=== PATIENT | male | born 1950 | race Caucasian/White ===

== ENCOUNTER 2019-09-04 21:40 | Emergency (ER) | payer MEDICARE, SELFPAY ==
[2019-09-04 21:52] VITALS: BP 170/79; PULSE 56; RESP 24; TEMP 36.2; O2SAT 99
--- NOTE | 2019-09-04 22:08 | ED_ITS ---
HPI - Male Genitourinary General Chief complaint: Urogenital-Male Stated complaint: pain with urination, groin pain Time Seen by Provider: 09/04/19 21:43 Source: patient Mode of arrival: Ambulatory Limitations: no limitations History of Present Illness HPI Narrative: 68-year-old male here for evaluation of right lower quadrant/right groin/right testicular pain. He states it has been going on for the past couple days. Today he started to have some pain with urination. Also having some lower back pain. Unsure if this is new or old. Pain is worse with palpation. No changes in bowel habits. No vomiting. Has not tried anything for the symptoms prior to arrival Related Data Allergies Allergy/AdvReac Type Severity Reaction Status Date / Time No Known Drug Allergies Allergy Verified 09/04/19 21:46 Review of Systems Constitutional Constitutional: Denies fever(s) Cardiovascular Cardiovascular: Denies chest pain and Denies dyspnea Respiratory Respiratory: Denies cough and Denies dyspnea Gastrointestinal Gastrointestinal: Reports abdominal pain, Denies change in stool character, Denies diarrhea, Denies nausea and Denies vomiting Genitourinary Genitourinary: Reports genital pain, Reports dysuria and Reports testicular pain Musculoskeletal Musculoskeletal: Reports back pain Integumentary/Breasts Skin/Breast: Denies lesions and Denies rash Neurologic Neurologic: Denies behavioral changes Psychiatric Psychiatric: Denies behavioral changes Hematologic/Lymphatic Hematologic/Lymphatic: Denies easy bleeding and Denies easy bruising Patient History Medical History Radiculopathy of cervical region (Inactive) Social History Smoking Status: Current every day smoker Smoking Status: Current every day smoker Exam Initial Vital Signs Initial Vital Signs: Vital Signs Temperature 97.1 F L 09/04/19 21:52 Pulse Rate 56 L 09/04/19 21:52 Respiratory Rate 24 09/04/19 21:52 Blood Pressure 170/79 H 09/04/19 21:52 Pulse Oximetry 99 09/04/19 21:52 Const General: cooperative Orientation: alert and awake HENMT Head: normal to inspection and normocephalic Resp Effort & Inspection: normal respiratory effort Cardio Rate: regular rate GI Inspection: non-distended Palpation: soft, No firm and tender (Right lower quadrant) External: circumcised Penis: normal penis Scrotum: scrotum normal Testes: normal, epididymal tenderness on the right, no testicular mass, no testicular swelling and testicular tenderness on the right Back/Spine/Pelvis Back: No CVA tenderness Skin Lesions: no lesions Rashes: no rashes Neuro General: alert and awake Cognition: normal cognition Speech: speech normal Extrem General: normal to inspection and capillary refill normal Psych Appearance: grossly normal and well kempt Course Orders Ordered: ED Orders 09/04/19 22:15 Complete Blood Count AUTO DIFF Stat Comprehensive Metabolic Panel Stat Lipase Stat 09/04/19 22:35 CT kidney ureter bladder (KUB) Stat US scrotum Stat 09/05/19 00:10 Urine Microscopic Stat Discontinued Medications Ketorolac Tromethamine (Toradol) 30 mg IV NOW ONE Stop: 09/04/19 22:35 Last Admin: 09/04/19 22:41 Dose: 30 mg Documented by: [place] Vital Signs Vital signs: Vital Signs - 8 hr 09/04/19 21:52 09/04/19 23:41 Temperature 97.1 F L Pulse Rate 56 L 60 Respiratory Rate 24 18 Blood Pressure [Left Arm] 170/79 H 142/77 H Pulse Oximetry 99 98 MDM - Male Genitourinary Lab Data Attestation: I reviewed the patient's lab results. Result diagrams: 09/04/19 22:15 09/04/19 22:15 Labs: Lab Results 09/04/19 09/04/19 09/05/19 Range/Units 22:15 22:15 00:10 WBC 10.6 (4.5-11.0) X10^3/uL RBC 5.23 (4.5-5.9) X10^6/uL Hgb 15.3 (13.5-17.5) g/dL Hct 44.2 (41-53) % MCV 84.5 (80-100) fL MCH 29.3 (26-34) PG MCHC 34.7 (30-36) % RDW 14.1 (11.6-14.8) % Plt Count 243 (150-400) X10^3/uL Neut % (Auto) 76.9 H (50-75) % Lymph % (Auto) 16.2 L (25-40) % [place] % (Auto) 5.2 (3-14) % Eos % (Auto) 0.9 L (2-4) % Baso % (Auto) 0.8 (0-2) % Neut # (Auto) 8200 H (2352-1159) /uL Lymph # (Auto) 1700 (1437-6678) /uL [place] # (Auto) 600 (0-900) /uL Eos # (Auto) 100 (0-450) /uL Baso # (Auto) 100 (0-100) /uL Sodium 138 (137-145) mmol/L Potassium 3.3 L (3.4-5.1) mmol/L Chloride 101 (98-107) mmol/L Carbon Dioxide 23 (22-32) mmol/L BUN 15 (9-20) mg/dL Creatinine 0.80 (0.66-1.25) mg/dL Estimated GFR > 60.0 (>60) mL/min BUN/Creatinine Ratio 18.8 (6-22) Glucose 114 H (80-110) mg/dL Calcium 9.3 (8.4-10.2) mg/dL Total Bilirubin 0.6 (0.2-1.3) mg/dL AST 33 (17-59) IU/L ALT 27 (<50) IU/L Alkaline Phosphatase 78 (38-126) U/L Total Protein 7.7 (6.3-8.2) g/dL Albumin 4.6 (3.5-5.0) g/dL Globulin 3.1 (1.7-4.1) g/dL Albumin/Globulin Ratio 1.5 (1.0-2.8) Lipase 56 (23-300) U/L Urine RBC None seen (0-5/HPF) Urine WBC None seen (0-5/HPF) Ur Squamous Epith Cells 0-1 /hpf (0-5/HPF) Urine Bacteria None seen (None) Ur Culture Indicated? Cult not indicated Urine Dip Bedside Urine Glucose Negative Bedside Urine Bilirubin - Negative Bedside Urine Ketone - Negative Urine Specific [place] 1.015 Bedside Urine Occult Blood - Negative Bedside Urine pH 7.5 Bedside Urine Protein +/- 15 Bedside Urine Urobilinogen - Negative Bedside Urine Nitrite - Negative Bedside Urine Leukocytes - Negative Esterase Imaging Data CT scan - abdomen/pelvis: Radiologist's Impression: No renal calculi or hydronephrosis Unremarkable appendix MDM Narrative Medical decision making narrative: Labs unremarkable, urinalysis shows no signs of infection. CT scan of the abdomen shows no signs of hernia, appendicitis, ureteral stone. Patient's pain is more along the epididymis and in the right groin area. Not on the right testicle. He has had pain for the past several days. Low suspicion for testicular torsion. No indication for antibiotics. Patient is not concern for any STI's we did discuss symptomatic treatment for epididymitis. Discussed use of anti-inflammatories. Discussed return precautions and follow-up instructions. He expressed understanding and agreement plan. Discharge Plan Departure Patient Disposition: Home Clinical Impression: Right groin pain Instructions: DI for Epididymitis Activity Restrictions/Additional Instructions: Recommend that you continue with the anti-inflammatories such as Motrin or Naprosyn. Also recommend he wear supportive clothing. You can also ice the area. Contact her primary provider for follow-up. Like we discussed if you are looking for primary provider here in the local area you can contact the health human resources services specialist at [phone]. Return to the emergency department for any new or worsening symptoms.
--- NOTE | 2019-09-04 22:35 | DI.CT.S_ITS ---
PROCEDURE: CT KIDNEY URETER BLADDER (KUB) INDICATIONS: Right lower quadrant abdominal pain eval for stone TECHNIQUE: Noncontrast 5 mm thick sections acquired from the diaphragms to the symphysis. 5 mm thick coronal and sagittal reformats were then performed. For radiation dose reduction, the following was used: automated exposure control, adjustment of mA and/or kV according to patient size. COMPARISON: None. FINDINGS: Image quality: Excellent. Lung bases: Lung bases are clear. Heart size is normal. Urinary system: Both kidneys are normal in size. No kidney stones. No hydronephrosis or perinephric fat stranding. Both ureters appear non-dilated throughout their expected courses. Bladder wall thickness is normal; no calcified bladder stones. Note is made of several pelvic phleboliths, separate from the expected course of the distal ureters bilaterally. Other solid organs: Liver is normal in size but there appears to be moderate fatty infiltration throughout the liver. Gallbladder appears normal. Pancreas is normal in contours. Spleen is normal in size. No adrenal nodules. Peritoneum and bowel: Unenhanced bowel loops demonstrate normal wall thickness and caliber. No free fluid or air. Nodes and vessels: No retroperitoneal or mesenteric adenopathy by size criteria. Aorta and inferior vena cava are normal in caliber. Abdominal wall: No ventral hernias. Pelvis: No free pelvic fluid. No inguinal hernias or adenopathy. Normal appendix foun right lower quadrant. Note is made of multiple small surgical clips at the upper margin of the right hemiscrotum, possibly indicating prior orchiectomy. Note is made of a 1.5 cm partially calcified presumed lymph nodes above the right seminal vesicle. No inflammation in this area is present. Bones: No suspicious bony lesions. No vertebral body compression fractures. IMPRESSION: A source of right lower quadrant pain is not seen. No hydronephrosis or nephrolithiasis is present. A normal appendix is found, no adjacent diverticulitis is suspected. Multiple small surgical clips seen at the upper margin of the left hemiscrotum, indicating some form of operative intervention in that area. Incidental note is made of a partially calcified lymph node in the expected position of the soft tissues just above the right seminal vesicle. Dictated by: Vaughn Ch M.D. on 09/05/2019 at 8:10 Approved by: Vaughn Ch M.D. on 09/05/2019 at 8:14
[2019-09-04] MEDS: KETOROLAC 60 MG/2 ML VIAL 30 MG IV (22:41)
[2019-09-04 22:45] LABS: Add Manual Diff / Slide Review NO; Basophils Absolute Auto 100 /uL (0-100); Basophils Percent Auto 0.8 % (0-2); Eosinophils Absolute Auto 100 /uL (0-450); Eosinophils Percent Auto 0.9 % (2-4); Hematocrit 44.2 % (41-53); Hemoglobin 15.3 g/dL (13.5-17.5); Lymphocytes Absolute Auto 1700 /uL (1100-4500); Lymphocytes Percent Auto 16.2 % (25-40); Mean Corpuscular HGB Conc 34.7 % (30-36); Mean Corpuscular Hemoglobin 29.3 PG (26-34); Mean Corpuscular Volume 84.5 fL (80-100); Monocytes Absolute Auto 600 /uL (0-900); Monocytes Percent Auto 5.2 % (3-14); Neutrophils Absolute Auto 8200 /uL (1500-7000); Neutrophils Percent Auto 76.9 % (50-75); Platelet Count 243 X10^3/uL (150-400); Red Blood Cell Count 5.23 X10^6/uL (4.5-5.9); Red Cell Distribution Width 14.1 % (11.6-14.8); White Blood Cell Count 10.6 X10^3/uL (4.5-11.0)
[2019-09-04 22:46] LABS: Alanine Aminotransferase 27 IU/L (<50); Albumin 4.6 g/dL (3.5-5.0); Albumin Globulin Ratio 1.5 (1.0-2.8); Alkaline Phosphatase 78 U/L (38-126); Aspartate Aminotransferase 33 IU/L (17-59); BUN Creatinine Ratio 18.8 (6-22); Bilirubin Total 0.6 mg/dL (0.2-1.3); Blood Urea Nitrogen 15 mg/dL (9-20); Calcium 9.3 mg/dL (8.4-10.2); Carbon Dioxide 23 mmol/L (22-32); Chloride 101 mmol/L (98-107); Estimated Glomerular Filt Rate > 60.0 mL/min (>60); Globulin 3.1 g/dL (1.7-4.1); Glucose 114 mg/dL (80-110); HEMOLYSIS 16 (0-50); Lipase 56 U/L (23-300); Potassium 3.3 mmol/L (3.4-5.1); Sodium 138 mmol/L (137-145); Total Protein 7.7 g/dL (6.3-8.2)
[2019-09-04 23:41] VITALS: BP 142/77; PULSE 60; RESP 18; O2SAT 98
--- NOTE | 2019-09-05 00:14 | PC.NURSE ---
He said the toradol helped his pain a lot,however,he just urinated and said urinating made the pain worse, notified of this.
[2019-09-05 00:18] LABS: Bacteria Urine None Seen; RBC Urine None Seen (0-5/HPF); WBC Urine None Seen (0-5/HPF)
[2019-09-05 00:33] LABS: Culture Indicated Urine Cult Not Indicated; Squamous Epithelial Cell Urine 0-1 /HPF (0-5/HPF)
[2019-09-05 01:00] VITALS: BP 139/71; PULSE 56; RESP 18; O2SAT 98
== END 2019-09-05 01:01 | disposition home or self-care (01) ==
PROVIDERS: Emergency Provider Emergency Medicine
DX: R10.31 Right lower quadrant pain (principal); R30.0 Dysuria
CPT/HCPCS: 36415; 51798; 74176; 80053; 81003; 81015; 83690; 85025; 96374; 99284; J1885

== ENCOUNTER 2019-09-18 08:22 | Emergency (ER) | payer MEDICARE, SELFPAY ==
[2019-09-18 08:22] VITALS: BP 200/97; PULSE 57; RESP 18; TEMP 37.1; O2SAT 100; BMI 34.3
--- NOTE | 2019-09-18 08:34 | DI.RAD.S_ITS ---
PROCEDURE: XR CHEST 1V INDICATIONS: chest pain TECHNIQUE: One view of the chest was acquired. COMPARISON: None. FINDINGS: Surgical changes and devices: None. Lungs and pleura: Scattered subsegmental atelectasis and/or scarring. No focal consolidation. No pleural effusions or pneumothorax. Mediastinum: Mediastinal contours appear normal. Heart size is normal. Bones and chest wall: No suspicious bony lesions. Overlying soft tissues appear unremarkable. Chronic right rib fractures. IMPRESSION: Scattered subsegmental atelectasis and/or scarring. No acute consolidation. Dictated by: Edward Dubose M.D. on 09/18/2019 at 9:13 Approved by: Edward Dubose M.D. on 09/18/2019 at 9:15
[2019-09-18 08:45] LABS: Add Manual Diff / Slide Review NO; Basophils Absolute Auto 100 /uL (0-100); Basophils Percent Auto 0.7 % (0-2); Eosinophils Absolute Auto 300 /uL (0-450); Hematocrit 41.9 % (41-53); Hemoglobin 14.6 g/dL (13.5-17.5); Lymphocytes Absolute Auto 1600 /uL (1100-4500); Lymphocytes Percent Auto 22.7 % (25-40); Mean Corpuscular HGB Conc 34.8 % (30-36); Mean Corpuscular Hemoglobin 29.1 PG (26-34); Mean Corpuscular Volume 83.6 fL (80-100); Monocytes Absolute Auto 500 /uL (0-900); Monocytes Percent Auto 7.2 % (3-14); Neutrophils Absolute Auto 4700 /uL (1500-7000); Neutrophils Percent Auto 65.4 % (50-75); Platelet Count 205 X10^3/uL (150-400); Red Blood Cell Count 5.01 X10^6/uL (4.5-5.9); Red Cell Distribution Width 14.7 % (11.6-14.8); White Blood Cell Count 7.1 X10^3/uL (4.5-11.0)
--- NOTE | 2019-09-18 08:45 | ED_ITS ---
HPI - Chest Pain General Chief Complaint: Chest Pain Stated Complaint: Sent over from Doctors office. shortness breath Time Seen by Provider: 09/18/19 08:34 Source: patient Mode of arrival: Wheelchair History of Present Illness HPI narrative: Patient is a 69-year-old male with history of hypertension presenting with chest pain. He says he woke up this morning with chest heaviness radiating to his jaw and right arm. He noticed it getting worse with exertion. He has never had anything like this in the past. He took an aspirin prior to arrival. MD complaint: chest pain Onset (ago): hour(s) Duration: constant Onset: during rest Pain location: substernal Severity: severe Quality: tightness and heaviness Pain radiation: RUE Relieving factors: nothing Exacerbating factors: exertion Treatments prior to arrival chest pain: aspirin Related Data Allergies Allergy/AdvReac Type Severity Reaction Status Date / Time No Known Drug Allergies Allergy Verified 09/04/19 21:46 Review of Systems Review of Systems Narrative: GENERAL: Denies chills, fatigue, malaise, fever, sweats, travel HEENT: Denies sinus pain, ear pain, sore throat, difficulty swallowing, neck pain RESPIRATORY: Denies dyspnea, cough, wheezing, hemoptysis, sputum. CARDIOVASCULAR: See HPI GASTROINTESTINAL: Denies nausea, vomiting, abdominal pain, diarrhea, constipation, melena. : Denies dysuria, frequency, incontinence, hematuria, urinary retention, flank pain. MUSCULOSKELETAL: Denies weakness, joint pain, or bony pain SKIN: No rash, no erythema, no pruritus NEUROLOGIC: Denies weakness, dizziness, headache, numbness, change in speech, co nfusion PSYCHIATRIC: No concerning psychosocial issues. 12 point review of systems is negative except for those stated above and HPI Patient History Medical History Hypertension (Acute) Radiculopathy of cervical region (Inactive) Social History Smoking Status: Current every day smoker Smoking Status: Current every day smoker tobacco type: cigarettes Substance Use Type: does not use Exam Initial Vital Signs Initial Vital Signs: Vital Signs Temperature 98.7 F 09/18/19 08:22 Pulse Rate 57 L 09/18/19 08:22 Respiratory Rate 18 09/18/19 08:22 Blood Pressure 200/97 H 09/18/19 08:22 Pulse Oximetry 100 09/18/19 08:22 GENERAL: Well-appearing, well-nourished and in no acute distress. HEENT: Head atraumatic,EOMI, pupils reactive, face symmetric, moist mucous membranes CARDIOVASCULAR: Regular rate and rhythm without murmurs, rubs or gallops. RESPIRATORY: Breath sounds equal bilaterally, no wheezes rales or rhonchi. ABDOMEN: Soft, nontender. Normoactive bowel sounds all 4 quadrants. No guarding or rebound.ess EXTREMITIES: Normal range of motion, no clubbing or edema. Neurovascularly intact NEUROLOGICAL: Alert and oriented x4.Normal gait and speech. Cranial nerves II through XII grossly intact. SKIN: Warm, dry, no laceration, no petechiae, no rashes or lesions. Course Orders Ordered: ED Orders 09/18/19 08:32 B Type Natriuretic Peptide Stat Complete Blood Count AUTO DIFF Stat Comprehensive Metabolic Panel Stat Lipase Stat Partial Thromboplastin Time Stat Prothrombin Time INR Stat Troponin & CK Cardiac Panel Stat 09/18/19 08:34 XR chest 1V Stat EKG-12 Lead Stat Sodium Chloride (Normal Saline 0.9%) 1,000 mls @ 150 mls/hr IV CONT YAJAIRA Last Infusion: 09/18/19 09:27 Dose: 150 mls/hr Documented by: Admin: 09/18/19 08:47 Dose: 150 mls/hr Documented by: CRISTÓBAL Heparin Sodium/Dextrose (Heparin Drip) 25,000 unit in 500 mls @ 20 mls/hr IV CONT YAJAIRA; Protocol Last Titration: 09/18/19 09:26 Dose: 1,000 units/hr, 20 mls/hr Documented by: Admin: 09/18/19 09:05 Dose: 1,000 units/hr, 20 mls/hr Documented by: CRISTÓBAL Discontinued Medications Heparin Sodium (Porcine) (Heparin) 5,000 unit IV NOW ONE Stop: 09/18/19 09:01 Last Admin: 09/18/19 09:05 Dose: 5,000 unit Documented by: CRISTÓBAL Nitroglycerin (Nitrostat) 0.4 mg SL [id number] PRN PRN Reason: Chest Pain Last Admin: 09/18/19 08:58 Dose: 0.4 mg Documented by: Admin: 09/18/19 08:52 Dose: 0.4 mg Documented by: Admin: 09/18/19 08:47 Dose: 0.4 mg Documented by: CRISTÓBAL Vital Signs Vital signs: Vital Signs - 8 hr 09/18/19 08:22 09/18/19 08:47 09/18/19 08:52 Temperature 98.7 F Pulse Rate 57 L 57 L 67 Respiratory Rate 18 Blood Pressure 200/97 H 200/57 H 136/92 H Blood Pressure [Left Arm] Pulse Oximetry 100 09/18/19 08:58 09/18/19 09:00 09/18/19 09:15 Temperature Pulse Rate 65 63 61 Respiratory Rate 22 14 Blood Pressure 125/81 156/84 H Blood Pressure [Left Arm] 109/78 154/89 H Pulse Oximetry 95 98 MDM - Chest Pain Lab Data Attestation: I reviewed the patient's lab results. Result diagrams: 09/18/19 08:32 09/18/19 08:32 Labs: Lab Results 09/18/19 09/18/19 09/18/19 Range/Units 08:32 08:32 08:32 WBC 7.1 (4.5-11.0) X10^3/uL RBC 5.01 (4.5-5.9) X10^6/uL Hgb 14.6 (13.5-17.5) g/dL Hct 41.9 (41-53) % MCV 83.6 (80-100) fL MCH 29.1 (26-34) PG MCHC 34.8 (30-36) % RDW 14.7 (11.6-14.8) % Plt Count 205 (150-400) X10^3/uL Neut % (Auto) 65.4 (50-75) % Lymph % (Auto) 22.7 L (25-40) % [place] % (Auto) 7.2 (3-14) % Eos % (Auto) 4.0 (2-4) % Baso % (Auto) 0.7 (0-2) % Neut # (Auto) 4700 (0617-0223) /uL Lymph # (Auto) 1600 (4488-6189) /uL [place] # (Auto) 500 (0-900) /uL Eos # (Auto) 300 (0-450) /uL Baso # (Auto) 100 (0-100) /uL PT 10.5 (10.1-12.7) SECONDS INR 0.9 (0.9-1.3) APTT 33 (26.4-36.2) SECONDS Sodium 141 (137-145) mmol/L Potassium 3.2 L (3.4-5.1) mmol/L Chloride 105 (98-107) mmol/L Carbon Dioxide 28 (22-32) mmol/L BUN 17 (9-20) mg/dL Creatinine 0.80 (0.66-1.25) mg/dL Estimated GFR > 60.0 (>60) mL/min BUN/Creatinine Ratio 21.3 (6-22) Glucose 113 H (80-110) mg/dL Calcium 9.6 (8.4-10.2) mg/dL Total Bilirubin 0.5 (0.2-1.3) mg/dL AST 32 (17-59) IU/L ALT 32 (<50) IU/L Alkaline Phosphatase 74 (38-126) U/L Total Creatine Kinase 118 (55-170) U/L CK-MB (CK-2) 0.95 (<2.37) ng/mL CK-MB (CK-2) Rel Index 0.8 L (1.5-5.0) % Troponin I 0.026 (0.01-0.034) ng/mL B-Natriuretic Peptide < 100 (<100) Total Protein 7.5 (6.3-8.2) g/dL Albumin 4.3 (3.5-5.0) g/dL Globulin 3.2 (1.7-4.1) g/dL Albumin/Globulin Ratio 1.3 (1.0-2.8) Lipase 185 (23-300) U/L Imaging Data Chest x-ray: Attestation: I personally reviewed and interpreted this imaging study as follows: My Impression: No acute cardiopulmonary process ECG Data Attestation: I personally reviewed and interpreted this ECG as follows: Prior ECG tracings: available for review Interpretation: EKG 1. Sore normal sinus rhythm rate 55 p.r. interval 208 peak T-waves noted in V2 and V3 and V4 EKG 2. Normal sinus rhythm ST elevation in V2 no ST depressions Core Measures AMI core measures followed: Yes MDM Narrative Medical decision making narrative: Patient took aspirin prior to arrival he is given 3 nitroglycerines in the emergency department this has relieved his pain significantly. I called and spoke with Dr. Willson ER physician at [facility] who is happy to accept patient for stat transport. Critical Care Time Critical Care Time Critical Care Time: Yes Total Critical Care Time: 30 Attestation: The high probability of a clinically significant, sudden or life threatening deterioration of the [cardiovascular] system(s) required my full and direct attention, intervention and personal management. The aggregate critical care time was 30 minutes. This time is in addition to time spent performing reported procedures but includes the following: [x] Data Review and interpretation [x] Patient assessment and monitoring of vital signs [x] Documentation [x] Medication orders and management Discharge Plan Departure Patient Disposition: [facility] Clinical Impression: ST elevation (STEMI) myocardial infarction Qualifiers: Involved coronary artery: LAD coronary artery Qualified Code(s): I21.02 - ST elevation (STEMI) myocardial infarction involving left anterior descending coronary artery
[2019-09-18 08:47] VITALS: BP 200/57; PULSE 57
[2019-09-18] MEDS: NITROGLYCERIN 0.4 MG SL TAB SL ×3 (08:47→08:58)
[2019-09-18] MEDS: SODIUM CHLORIDE 0.9% 1,000 ML 150 ML IV (08:47)
[2019-09-18 08:51] LABS: INR 0.9 (0.9-1.3); Prothrombin Time 10.5 SECONDS (10.1-12.7)
[2019-09-18 08:52] VITALS: BP 136/92; PULSE 67
[2019-09-18 08:54] LABS: PTT Partial Thromboplastin Tim 33 SECONDS (26.4-36.2)
[2019-09-18 08:55] LABS: Alanine Aminotransferase 32 IU/L (<50); Albumin 4.3 g/dL (3.5-5.0); Albumin Globulin Ratio 1.3 (1.0-2.8); Alkaline Phosphatase 74 U/L (38-126); Aspartate Aminotransferase 32 IU/L (17-59); BUN Creatinine Ratio 21.3 (6-22); Bilirubin Total 0.5 mg/dL (0.2-1.3); Blood Urea Nitrogen 17 mg/dL (9-20); Calcium 9.6 mg/dL (8.4-10.2); Carbon Dioxide 28 mmol/L (22-32); Chloride 105 mmol/L (98-107); Creatine Kinase 118 U/L (55-170); Estimated Glomerular Filt Rate > 60.0 mL/min (>60); Globulin 3.2 g/dL (1.7-4.1); Glucose 113 mg/dL (80-110); HEMOLYSIS < 15 (0-50); Lipase 185 U/L (23-300); Potassium 3.2 mmol/L (3.4-5.1); Sodium 141 mmol/L (137-145); Total Protein 7.5 g/dL (6.3-8.2)
[2019-09-18 08:58] VITALS: BP 125/81; PULSE 65
[2019-09-18 09:00] VITALS: BP 109/78; PULSE 63; RESP 22; O2SAT 95
[2019-09-18 09:04] LABS: B Type Natriuretic Peptide < 100 (<100)
[2019-09-18] MEDS: HEPARIN DRIP 25,000 UNIT/500 ML IV.SOLN 20 UNIT IV (09:05)
[2019-09-18] MEDS: HEPARIN 5,000 UNIT/ML VIAL 5000 UNIT IV (09:05)
[2019-09-18 09:07] LABS: Troponin I 0.026 ng/mL (0.01-0.034)
[2019-09-18 09:15] VITALS: BP 154/89; BP 156/84; PULSE 57; PULSE 61; RESP 14; O2SAT 98
[2019-09-18] MEDS: NITROGLYCERIN OINT 1 INCH/GM OINT...G. TOP (09:15)
[2019-09-18 09:18] LABS: CKMB % Relative Index 0.8 % (1.5-5.0); Creatine Kinase MB 0.95 ng/mL (<2.37)
--- NOTE | 2019-09-18 09:28 | PC.NURSE ---
After third nitro patient complaint of being very sleepy. Placed oxygen on patient, laid flat. Provider called to bedside.
--- NOTE | 2019-09-18 09:32 | PC.NURSE ---
0900 Two RN sign off on administration/order of Heparin Georgette STEWARD
== END 2019-09-18 09:25 | disposition short-term general hospital (02) ==
PROVIDERS: Emergency Provider Emergency Medicine
DX: I21.02 ST elevation (STEMI) myocardial infarction involving left anterior descending coronary artery (principal)
CPT/HCPCS: 36415; 71045; 80053; 82550; 82553; 83690; 83880; 84484; 85025; 85610; 85730; 93005; 93010; 96365; 96375; 99285; 99291; J1644